=== PATIENT | female | born 1985 | race Caucasian/White ===

== ENCOUNTER 2019-06-06 07:15 | Emergency (ER) | payer MEDICAID, SELFPAY ==
[2019-06-06 07:20] VITALS: BP 166/108; PULSE 105; RESP 14; TEMP 36.7; O2SAT 97
--- NOTE | 2019-06-06 07:20 | ED.GENADUL_ITS ---
Discharge Plan Disposition Patient Disposition: HOME Condition: Good Discharge Details Chief Complaint: DentalOral Clinical Impression: Pain, dental Primary Care Provider: Cindy Quintanilla ED Provider: Tree Steven Home Meds and New Rx's Prescriptions: New penicillin V potassium 500 mg tablet 500 mg PO QID 7 Days Qty: 28 RF: 0 No Action Mirena 20 mcg/24 hours (5 yrs) 52 mg intrauterine device 1 device IY ONCE RF: 0 Discharge Instructions Instructions: Toothache (ED) Additional Instructions: Please take the antibiotic as directed. Please take 1000 mg of Tylenol every 6 hours and 800 mg of ibuprofen every 6 hours for control of your pain. Please call the dental offices on the resource sheet we have provided. If you notice any worsening of your symptoms, or any new symptoms such as vomiting, diarrhea, fever, chills, shortness of breath, chest pain, numbness, weakness, or fainting , please return immediately to the emergency department for reevaluation. Please follow up with your primary care provider as soon as possible for reassessment and reevaluation. As always, it was a pleasure participating in your medical care today. Referrals: Cindy Quintanilla MD [Primary Care Provider] - Medical Decision Making This is a pleasant 34-year-old female who presents today for evaluation of dental pain in the left upper canine. Pain is been present for the last few days, unfortunately she had an appointment with the dentist she missed a secondary to car troubles. She has been taking Tylenol and Motrin with only mild improvement. Exam demonstrates notable dental caries, no evidence of periapical abscess or fluctuance. Dental block was performed and the patient had complete resolution of her pain. Recommend continue Tylenol Motrin outpatient, we did give a dental resource sheet for offices to call. We will give penicillin for antibiotic coverage of pulpitis which I suspect to be secondary to infectious etiology. With no evidence of significant facial cellulitis or other abnormalities if usually can be safely discharged home with close follow-up with a dentist. I have extensively reviewed the treatment plan and discharge instructions with the patient. I have addressed all patient concerns at this time. The patient was made aware of what symptoms to monitor for that would warrant a return to the emergency department. Discussed the plan with the patient, they demonstrate verbal understanding and agreement with our assessment and plan at this time. Time out was taken to identify the correct patient, procedure, and site. Risks and benefits were discussed with the patient and consent was obtained. Direct pressure was held over the area prior to the procedure to reduce painful injection. 5 cc?s of Lidocaine 1% and Bupivacaine 0.25% was instilled into the left upper alveolar space with a 27 gauge needle.Complete analgesia was obtained. The patient tolerated the procedure. There were no complications. HPI General Date/Time Provider Initiated Documentation: 06/06/19 07:20 . HPI Narrative: This is a 34-year-old female with a past medical history of gestational diabetes, migraines, who presents today for evaluation of left upper dental pain. Pain is been present for the past few days, she was scheduled to have a dental appointment yesterday however her car broke down and she missed the appointment. She has been taking Tylenol and Motrin with only mild improvement of pain. She denies any neck pain or headache, she denies any significant discharge. She does have known dental caries. She denies any trauma, fever or chills, or other complaints. No other modifying factors. Related Data Home Medications Medication Instructions Recorded Confirmed levonorgestrel 20 mcg/24 hours (5 1 device IY ONCE 02/15/19 02/15/19 yrs) 52 mg intrauterine device penicillin V potassium 500 mg PO QID 7 Days #28 tab 06/06/19 Previous Rx's Medication Instructions Recorded penicillin V potassium 500 mg PO QID 7 Days #28 tab 06/06/19 Allergies Allergy/AdvReac Type Severity Reaction Status Date / Time latex Allergy Intermediate rash Unverified 06/06/19 07:24 rizatriptan benzoate AdvReac Intermediate Dizziness/L Unverified 06/06/19 07:24 [From [facility]] ightheade CATS Allergy Mild RASH Uncoded 06/06/19 07:24 MOLD Allergy Mild RASH Uncoded 06/06/19 07:24 Review of Systems Review of Systems All systems reviewed & are unremarkable except as noted in HPI and below [facility] Medical History (Updated 10/07/18 @ 08:41 by Bella Medina) Gestational diabetes mellitus (GDM) affecting second Migraine Mild pre-eclampsia affecting first Surgical History (Updated 10/04/18 @ 10:32 by Nelsy Gaytan) Arthroplasty of knee (~2011) section Excision, Distal Clavicle Repair, ACL Family History Mother Essential hypertension Stroke Asthma Brother Substance abuse Mental disorder Father Essential hypertension Social History Smoking/Tobacco Use Status: Current every day Tobacco Type: cigarettes Drug use: Never Substance use type: does not use Do you feel safe at home: Yes Do you feel safe in your relationship?: Yes Female Reproductive History Menstrual control method: progestin IUCD (Mirena IUD inserted by DR Devlin Lot# [id number] EXP APR 2021) Exam Narrative Exam Narrative: 1.Const: Well-nourished, Well-developed, appearing stated age 2.Eyes: PERRL, no conjunctival injection, and symmetrical lids. 3.ENT: Atraumatic external nose and ears. Moist MM. Neck: Symmetric, trachea midline, No thyromegaly. Notable dental caries, with notable dental caries over the left upper canine. No evidence of periapical abscess, no fluctuance or significant swelling 4.CVS: +S1/S2, No murmurs or gallops. Peripheral pulses 2+ and equal in all extremities. Brisk capillary refill in all extremities. 5.RESP: Unlabored respiratory effort. Clear to auscultation bilaterally. No wheezes rales or rhonchi 6.GI: Soft, Nontender/Nondistended, No hepatosplenomegaly. No guarding or rebound. 7.MSK: Normocephalic/Atraumatic, Extremities w/o deformity or ttp No cyanosis or clubbing, Normal movement of all extremities 8.Skin: Warm, Dry. No rashes or lesions. 9.Neuro: customer care representative II-XII grossly intact. Sensation grossly intact, no focal neurologic deficits. 10.Psych: (AAO) x3. Appropriate mood and affect
== END 2019-06-06 07:37 | disposition home or self-care (01) ==
LOC: ER 07:39
PROVIDERS: Emergency Provider Student in an Organized Health Care Education/Training Program; PCP Nurse Practitioner Family
DX: K08.89 Other specified disorders of teeth and supporting structures (principal)
CPT/HCPCS: 10160; 99283

== ENCOUNTER 2019-07-24 07:23 | Emergency (ER) | payer MEDICAID, SELFPAY ==
[2019-07-24 07:31] VITALS: BP 126/78; PULSE 85; RESP 16; TEMP 36.5; O2SAT 98
--- NOTE | 2019-07-24 07:50 | ED.GENADUL_ITS ---
Discharge Plan Disposition Patient Disposition: HOME Condition: Stable Discharge Details Chief Complaint: Sorethroat Clinical Impression: Sore throat Primary Care Provider: Vinny Alva ED Provider: Bella Jasso Home Meds and New Rx's Prescriptions: No Action Mirena 20 mcg/24 hours (5 yrs) 52 mg intrauterine device 1 device IY ONCE RF: 0 Discharge Instructions Instructions: Pharyngitis (ED) Additional Instructions: Please return to the emergency department if you develop any new or worsening symptoms, if your condition does not improve as expected, or if you become othe rwise concerned. It is extremely important that you call as soon as possible to schedule an appointment to be seen by your primary care doctor in follow-up for this visit. Referrals: Vinny Alva, COMPUTER ENGINEERING TECHNOLOGIST [Primary Care Provider] - Discharge Data Discharge Date/Time-TO BE ENTERED AT DEPARTURE: 07/24/19 07:59 Medical Decision Making Ansley Osorio is a 34 y/o woman without h/o major medical problems who presented to the emergency department with sore throat for 2 days, no other symptoms, no SOB, no difficulty swallowing. On exam Pt is very well and non- toxic appearing without evidence of bacterial pharyngitis. Exam/hx not c/w meningitis, sepsis, pertonsillar or retropharyngeal abscess, other deep space infection, impending airway compromise. Rapid strep negative. Concern for viral pharyngitis vs irritation 2/2 post-nasal drip. I had a lengthy discussion with the Pt re: RTED precautions/red flags, home care, and importance of outpt f/u. Pt verbalized understanding of the plan and was amenable. All questions were answered. Pt was discharged to home with clear plan for outpt f/u. Medical Records Medical records reviewed: Yes I reviewed the patient's medical records. Lab Data Lab results reviewed: Yes I reviewed the patient's lab results. HPI General Mode of arrival: ambulatory . Date/Time Provider Initiated Documentation: 07/24/19 07:41 . Limitations to Documentation: no limitations . Information obtained by: patient, RN notes reviewed and old records reviewed . HPI Narrative: Ansley Osorio is a 34-year-old woman without reported history of medical problems presenting to the emergency department with sore throat. Patient reports that 2 days ago she developed a sore throat. She notes that she has had mild intermittent headache as well, but denies any other pain or any other symptoms. She states that she feels very well and in her usual state of health. She has been eating and drinking as usual. Patient states that a coworker has strep throat. She reports that she came to the emergency department today to be tested for strep throat, as her recently had a surgical procedure and she has a [id number] at home, patient does not want to transmit strep to either of them. She reports no other concerns today. Related Data Home Medications Medication Instructions Recorded Confirmed levonorgestrel 20 mcg/24 hours (5 1 device IY ONCE 02/15/19 07/24/19 yrs) 52 mg intrauterine device Allergies Allergy/AdvReac Type Severity Reaction Status Date / Time latex Allergy Intermediate rash Unverified 07/24/19 07:34 rizatriptan benzoate AdvReac Intermediate Dizziness/L Unverified 07/24/19 07:34 [From [facility]] ightheade CATS Allergy Mild RASH Uncoded 07/24/19 07:34 MOLD Allergy Mild RASH Uncoded 07/24/19 07:34 General Stated Complaint: Sorethroat JENNY: 4 Review of Systems Review of Systems Narrative: Constitutional: denies fevers Eyes: denies eye pain ENT: denies facial pain, dental pain, reports sore throat Cardiovascular: denies chest pain Respiratory: denies SOB, cough GI: denies abdominal pain, vomiting, diarrhea : denies flank pain MSK: denies back pain, neck pain, arthralgias Skin: denies rash Neuro: denies headaches, weakness PFSH Medical History Gestational diabetes mellitus (GDM) affecting second Migraine Mild pre-eclampsia affecting first Surgical History (Updated 10/04/18 @ 10:32 by Nelsy Gaytan) Arthroplasty of knee (~2011) 3rd acls repair section times two Excision, Distal Clavicle right Repair, ACL 1st 2005 acl and mcl 2nd 07/2011 just ACL Family History Mother Essential hypertension Stroke Asthma Brother Substance abuse Mental disorder Father Essential hypertension Social History Smoking/Tobacco Use Status: Current every day Tobacco Type: cigarettes Drug use: Never Substance use type: does not use Do you feel safe at home: Yes Do you feel safe in your relationship?: Yes Female Reproductive History Menstrual control method: progestin IUCD (Mirena IUD inserted by DR Devlin Lot# [id number] EXP APR 2021) Exam Narrative Exam Narrative: Constitutional: well and [id number], pleasant, conversing normally HENT: head atraumatic/normocephalic/normal inspection, mucous membranes moist, no intraoral lesion, mild cobblestoning of the posterior pharynx without erythema/edema/purulence, no other abnormality of the oropharynx Eyes: conjunctiva normal, sclera normal, pupils 3mm b/l Neck: no stridor, full painless ROM, no ant or post LAD, trachea midline Resp: normal work of breathing, LCTAB Cardio: normal rate, normal rhythm, no murmur appreciated Skin: warm, dry, normal color, no rash Neuro: alert, not altered, grossly non-focal, normal tone Psych: normal mood, normal affect, normal behavior Course Vital Signs Vital signs: Vital Signs Temperature 36.5 C 07/24/19 07:31 Pulse 85 07/24/19 07:31 Respiratory Rate 16 07/24/19 07:31 Blood Pressure 126/78 07/24/19 07:31 Pulse Oximetry 98 07/24/19 07:31 Temperature 36.5 C 07/24/19 07:31 Temperature Source Skin 07/24/19 07:31 Pulse 85 07/24/19 07:31 Respiratory Rate 16 07/24/19 07:31 Respiratory Effort Non-Labored 07/24/19 07:31 Blood Pressure 126/78 07/24/19 07:31 Blood Pressure Position Sitting 07/24/19 07:31 Pulse Oximetry 98 07/24/19 07:31 Oxygen Delivery Method Room Air 07/24/19 07:31 Oxygen Flow Rate 0 07/24/19 07:31 Pain Level 1 07/24/19 07:31 Lab/Test Results Lab/Test Results: 07/24/19 07:37 Pharynx Streptococcus Screen (MERVAT) - Pending POC Strep Test-JATIN(Rapid) Start: 07/24/19 07:37 Freq: .Rapid Strep Test Status: Active Protocol: Document 07/24/19 07:37 MMQ (Rec: 07/24/19 07:37 MMQ [id number]) Strep test-JATIN(Rapid)-POC POC-Strep test-JATIN (Rapid) Negative POC-Strep test-JATIN (Rapid) Negative
== END 2019-07-24 07:59 | disposition home or self-care (01) ==
LOC: ER 07:53
PROVIDERS: Emergency Provider Student in an Organized Health Care Education/Training Program; PCP Nurse Practitioner Family
DX: J02.9 Acute pharyngitis, unspecified (principal)
CPT/HCPCS: 87880; 99282; 87081

== ENCOUNTER 2020-07-26 09:51 | Outpatient (CLI) | payer MEDICAID, SELFPAY ==
[2020-07-26 10:06] LABS: HCT 41.6 % (36.0-46.0); HGB 14.1 g/dL (11.2-15.7); MCH 29.1 pg (27.0-33.0); MCHC 33.9 % (32.0-36.0); MPV 9.7 fL (8.0-11.0); Platelet Count 306 10^3/uL (130-400); RBC 4.84 10^6/uL (3.93-5.22); RDW 12.3 % (11.7-14.6); RDW-SD 38.5 fL
[2020-07-26 11:19] LABS: TSH 1.84 uIU/mL (0.36-3.74)
[2020-07-26 11:20] LABS: HCG Quant, Pregnancy < 1 mIU/mL (1-3)
[2020-07-31 11:33] LABS: FSH 2.3 mIU/mL (See Note); LH 0.6 mIU/mL (See Note); Prolactin 9.4 ng/mL (See Table)
== END 2020-07-26 10:11 ==
PROVIDERS: PCP Nurse Practitioner Family; Visit Provider Obstetrics & Gynecology
DX: N93.8 Other specified abnormal uterine and vaginal bleeding (principal)
CPT/HCPCS: 36415; 85027; 83001; 83002; 84146; 84443; 84702

== ENCOUNTER 2020-08-02 04:07 | Outpatient (CLI) | payer MEDICAID, SELFPAY ==
--- NOTE | 2020-08-02 07:15 | DI.US_ITS ---
EXAM: US PELVIS TRANSVAGINAL CLINICAL HISTORY: dysfunctional uterine bleeding,n93.8. TECHNIQUE: Transabdominal and transvaginal pelvic ultrasound was performed using standard protocol. COMPARISON: US OB ASSESSMENT - WEIGHT/MALDONADO from 05/20/2018 FINDINGS: KIDNEYS: Kidneys are symmetric in size. No evidence of renal calculi. No evidence of hydronephrosis. No renal mass or cyst identified. UTERUS: Position: Anteverted. Size: 11.1 long by 4.9 AP by 6.3 transverse cm Endometrium: 0.6 cm. Normal for patient's menstrual status. Myometrium: Heterogeneous with at least 3 discrete uterine fibroids. The largest is in the fundus an d measures 2.5 x 3.4 x 3.2 cm. Cervix: Unremarkable. OVARIES: Right: 2.3 x 1.5 x 1.5 cm Cyst or mass: None. Left: 2.3 x 1.5 x 1.5 cm Cyst or mass: None. DOPPLER: Color: Symmetric and uniform flow to both ovaries. No hyperemia. CUL-DE-SAC: Free fluid: None. Other: None. IMPRESSION: 1. Normal sonographic appearance of the kidneys. 2. Enlarged fibroid uterus. 3. Unremarkable bilateral ovaries. DATA REPOSITORY:
== END 2020-08-02 04:27 ==
PROVIDERS: PCP Nurse Practitioner Family; Visit Provider Obstetrics & Gynecology
DX: N93.8 Other specified abnormal uterine and vaginal bleeding (principal); D25.9 Leiomyoma of uterus, unspecified
CPT/HCPCS: 76830; 76856

== ENCOUNTER 2021-09-19 14:07 | Outpatient (REF) | payer MEDICAID, SELFPAY ==
[2021-09-19 15:14] LABS: HCT 40.9 % (36.0-46.0); HGB 13.4 g/dL (11.2-15.7); MCH 28.1 pg (27.0-33.0); MCHC 32.8 % (32.0-36.0); MCV 85.7 fL (80-95); MPV 10.7 fL (8.0-11.0); Platelet Count 283 10^3/uL (130-400); RBC 4.77 10^6/uL (3.93-5.22); RDW 12.8 % (11.7-14.6); RDW-SD 39.7 fL; WBC 7.86 10^3/uL (4.4-10.8)
[2021-09-19 15:58] LABS: Anion Gap 10.5 mmol/L (3-11); BUN 10 mg/dL (7-18); CO2 24.5 mmol/L (21.0-32.0); CREATININE 0.7 mg/dL (0.55-1.02); Calcium 8.8 mg/dL (8.5-10.1); Calculated LDL 170 mg/dL (<100); Chloride 104 mmol/L (98-107); Cholesterol 240 mg/dL (<200); Glucose 91 mg/dL (74-106); HDL Cholesterol 45 mg/dL (40-60); Sodium 139 mmol/L (136-145); Triglyceride 126 mg/dL (<150)
== END 2021-09-19 14:08 | disposition home or self-care (01) ==
LOC: NCHCN 14:07
PROVIDERS: PCP Nurse Practitioner Family; Visit Provider Physician Assistant
DX: Z00.00 Encounter for general adult medical examination without abnormal findings (principal)
CPT/HCPCS: 80048; 80061; 85027

== ENCOUNTER 2021-12-03 16:20 | Outpatient (REF) | payer MEDICAID, SELFPAY ==
[2021-12-04 13:35] LABS: COVID-19 RT-PCR UVMMC Result Negative (Negative)
== END 2021-12-03 16:21 | disposition home or self-care (01) ==
LOC: LBN 16:20
PROVIDERS: PCP Nurse Practitioner Family; Visit Provider Physician Assistant Medical
DX: Z20.822 Contact with and (suspected) exposure to COVID-19 (principal); J06.9 Acute upper respiratory infection, unspecified
CPT/HCPCS: U0003

== ENCOUNTER 2023-07-19 14:50 | Outpatient (CLI) | payer MEDICAID, SELFPAY ==
[2023-07-19 13:50] LABS: HCG Quant, Pregnancy 12516 mIU/mL (1-3)
== END 2023-07-19 14:51 | disposition home or self-care (01) ==
LOC: LBO 14:52
PROVIDERS: Visit Provider Obstetrics & Gynecology
DX: O26.91 Pregnancy related conditions, unspecified, first trimester (principal); Z3A.01 Less than 8 weeks gestation of pregnancy; O36.80X0 Pregnancy with inconclusive fetal viability, not applicable or unspecified
CPT/HCPCS: 36415; 86850; 86900; 86901; 84702

== ENCOUNTER 2023-07-21 03:26 | Outpatient (CLI) | payer MEDICAID, SELFPAY ==
[2023-07-21 15:57] LABS: HCG Quant, Pregnancy 17972 mIU/mL (1-3)
== END 2023-07-21 03:27 | disposition home or self-care (01) ==
LOC: LBO 03:26
PROVIDERS: Visit Provider Obstetrics & Gynecology
DX: O26.91 Pregnancy related conditions, unspecified, first trimester (principal); Z3A.01 Less than 8 weeks gestation of pregnancy
CPT/HCPCS: 36415; 84702